=== PATIENT | male | born 1960 | race Caucasian/White ===

== ENCOUNTER 2018-07-05 09:37 | Emergency (ER) | payer OTHER ==
[~2018-07-05] VITALS: Ht 165.1 cm; Wt 88.0 kg
[~2018-07-05 09:37] MED LIST: CIPRO500 MG PO; FLAGYL375 MG PO; FLAGYL500MG PO; LIPITOR20 MG PO; [UNRECOGNIZED DRUG - OTHER] PO
== END 2018-07-05 16:28 | disposition home or self-care (01) ==
LOC: ER 09:37
DX: K57.32 Diverticulitis of large intestine without perforation or abscess without bleeding (principal); R10.32 Left lower quadrant pain

== ENCOUNTER 2019-03-22 18:51 | Emergency (ER) | payer OTHER ==
[~2019-03-22] VITALS: Ht 165.1 cm; Wt 88.9 kg
[2019-03-22] MEDS ORDERED: MUCINEX DM ER1 EAC1 PO (22:48)
[2019-03-22] MEDS ORDERED: ZITHROMAX500 MG PO (22:48)
== END 2019-03-22 22:53 | disposition home or self-care (01) ==
LOC: ER 18:51
DX: B34.9 Viral infection, unspecified (principal)

== ENCOUNTER 2019-07-10 07:01 | Emergency (ER) | payer OTHER ==
[~2019-07-10] VITALS: Ht 165.1 cm; Wt 88.5 kg
[~2019-07-10 07:01] MED LIST changes: +MUCINEX DM ER1 EAC1 PO; +ZITHROMAX500 MG PO
== END 2019-07-10 14:21 | disposition home or self-care (01) ==
LOC: ER 07:01
DX: K57.92 Diverticulitis of intestine, part unspecified, without perforation or abscess without bleeding (principal); R10.32 Left lower quadrant pain

== ENCOUNTER 2021-03-25 09:16 | Emergency (ER) | payer OTHER ==
[~2021-03-25] VITALS: Ht 165.1 cm; Wt 87.1 kg
== END 2021-03-25 15:35 | disposition home or self-care (01) ==
LOC: ER 09:16
DX: R10.30 Lower abdominal pain, unspecified (principal)

== ENCOUNTER → 2021-06-25 | Emergency (ER) | payer OTHER ==
[~2021-06-25] VITALS: Ht 165.1 cm; Wt 86.6 kg
== END | disposition home or self-care (01) ==
LOC: ER 13:09
DX: K57.32 Diverticulitis of large intestine without perforation or abscess without bleeding (principal)

== ENCOUNTER 2021-10-21 10:17 | Outpatient (CLI) | payer OTHER | END 2021-10-21 10:35 | disposition home or self-care (01) | LOC: SONOGRAMA 10:17 | PROVIDERS: ATTEND Internal Medicine Nephrology | DX: R80.9 Proteinuria, unspecified (principal) ==

== ENCOUNTER 2024-04-09 12:32 | Emergency (ER) | payer OTHER ==
[~2024-04-09] VITALS: Ht 165.1 cm; Wt 81.2 kg
[~2024-04-09 12:32] MED LIST changes: +DICLOFENAC SOD100 GM; +FAMOTIDINE20 MG; +HYOSCYAMINE0.125 M1 SL; +MAXIMUM D3325 MCG
[2024-04-09] MEDS ORDERED: ATORVASTATIN CA40 MG (12:36)
[2024-04-09] MEDS ORDERED: RINGERS SOLUTION,LACTATED 1,000 ML IV STA (14:22)
[2024-04-09] MEDS ORDERED: METRONIDAZOLE/SODIUM CHLORIDE 500 MG/100 ML PIGGYBACK IV STA (14:22)
[2024-04-09] MEDS ORDERED: CIPROFLOXACIN IN 5 % DEXTROSE 400 MG/200 ML PIGGYBAG IV STA (14:22)
[2024-04-09] MEDS ORDERED: MEPERIDINE HCL/PF 50 MG/ML VIAL IM STA (14:23)
[2024-04-09] MEDS ORDERED: CIPROFLOXACIN IN 5 % DEXTROSE 400 MG/200 ML PIGGYBAG IV ONE (15:15)
[2024-04-09] MEDS ORDERED: METRONIDAZOLE/SODIUM CHLORIDE 500 MG/100 ML PIGGYBACK IV ONE (15:16)
[2024-04-09 16:00] LABS: URINE APPEARANCE Clear; URINE BILIRRUBIN Negative (NEGATIVE); URINE BLOOD Negative; URINE COLOR Dark Yellow; URINE GLUCOSE Negative (NEGATIVE); URINE KETONE Trace (NEGATIVE); URINE LEUKOCYTE Negative; URINE NITRATE Negative; URINE PROTEIN 30 (NEGATIVE)
[2024-04-09 16:01] LABS: HEMOGLOBIN 13.8 g/dL (13-16.00); MEAN CELL VOLUME 84.1 fL (80.0-100.00); MEAN CORPUSCULAR HGB CONC 34.5 g/dl (32.0-36.0); PLATELET COUNT 239 K/uL (150-450); RED BLOOD COUNT 4.76 M/uL (4.00-6.00); RED CELL DISTRIBUTION WIDTH 14.4 % (11.5-14.5); URINE RBC 3.9 uL (0.0-20.8); URINE WBC 2.3 uL (0.0-23.2)
[2024-04-09 16:02] LABS: URINE CAST 0.61 uL (0.0-1.40); URINE EPITHELIAL CELLS 0.9 uL (0.0-38.8)
[2024-04-09 16:22] LABS: CALCIUM 9.8 mg/dL (8.5-10.1); CREATININE SERUM 0.99 mg/dL (0.70-1.30); GFR 75.87; POTASSIUM 3.72 mEq/L (3.5-5.1)
[2024-04-09] MEDS ORDERED: PEPCID AC20 MG PO (17:21)
[2024-04-09] MEDS ORDERED: METRONIDAZOLE500 MG PO (17:21)
[2024-04-09] MEDS ORDERED: CIPRO500 MG PO (17:21)
[2024-04-09] MEDS ORDERED: LEVSIN/SL0.125 MG SL (17:21)
[2024-04-09] MEDS ORDERED: KETOROLAC TROMETHAMINE 30 MG VIAL IV STA (20:05)
[2024-04-09] MEDS ORDERED: KETOROLAC TROMETHAMINE 30 MG VIAL ONE (20:08)
== END 2024-04-09 20:17 | disposition home or self-care (01) ==
LOC: ER 12:34
PROVIDERS: General Practice
DX: K57.32 Diverticulitis of large intestine without perforation or abscess without bleeding (principal); R10.9 Unspecified abdominal pain; J45.909 Unspecified asthma, uncomplicated; Z91.013 Allergy to seafood; Z88.8 Allergy status to other drugs, medicaments and biological substances; K80.20 Calculus of gallbladder without cholecystitis without obstruction
CPT/HCPCS: 36415; 74176; 96365; 99284; J1885

== ENCOUNTER 2025-03-11 09:29 | Emergency (ER) | payer OTHER ==
[~2025-03-11] VITALS: Ht 165.1 cm; Wt 83.9 kg
[~2025-03-11 09:29] MED LIST changes: +ATORVASTATIN CA40 MG; +LEVSIN/SL0.125 MG SL; +METRONIDAZOLE500 MG PO; +PEPCID AC20 MG PO
[2025-03-11 11:23] LABS: BASO % 0.5 % (0.1-1.2); EOS # 0.22 (0.04-0.54); EOS % 2.5 % (0.7-7.0); LYMPH # 1.38 (1.18-3.74); LYMPH % 15.8 % (19.3-53.1); MEAN PLATELET VOLUME 9.10 fl (9.4-12.4); MONO # 0.71 (0.24-0.82); MONO % 8.1 % (4.7-12.5); NEUT # 6.36 (1.56-6.13); NEUT % 72.8 % (34.0-71.1); RED CELL DISTRIBUTION WIDTH 12.9 % (11.6-14.4)
[2025-03-11 11:57] LABS: ALT/SGPT 36.0 U/L (12-78); AST/SGOT 22.0 U/L (15-37); BILIRUBIN TOTAL 0.59 mg/dL (0.3-1.2); BUN CREA RATIO 25.0 (7.0-25.0); CREATININE SERUM 0.99 mg/dL (0.70-1.30); GFR 75.63; GLOBULINA 4.0 G/DL (2.4-3.5); GLUCOSE FASTING 123.0 mg/dL (65-100); OSMOLALITY SERUM 291.0 MOSM/KG (275-295)
[2025-03-11] MEDS ORDERED: IBUPROFEN600 MG PO (17:08)
[2025-03-11] MEDS ORDERED: KETOROLAC TROMETHAMINE 60 MG VIAL IM ONE (17:19)
[2025-03-11] MEDS ORDERED: DEXAMETHASONE SODIUM PHOSPHATE 4 MG/ML VIAL ONE (17:19)
== END 2025-03-11 17:27 | disposition home or self-care (01) ==
LOC: ER 09:29
PROVIDERS: Preventive Medicine Public Health & General Preventive Medicine
DX: M65.262 Calcific tendinitis, left lower leg (principal); M25.562 Pain in left knee; Z91.013 Allergy to seafood; M06.8A Other specified rheumatoid arthritis, other specified site; J45.909 Unspecified asthma, uncomplicated; K57.32 Diverticulitis of large intestine without perforation or abscess without bleeding; L40.8 Other psoriasis

== ENCOUNTER 2025-07-10 10:29 | Emergency (ER) | payer OTHER ==
[~2025-07-10] VITALS: Ht 165.1 cm; Wt 83.0 kg
[~2025-07-10 10:29] MED LIST changes: +IBUPROFEN600 MG PO
[2025-07-10] MEDS ORDERED: IPRATROPIUM BROMIDE 0.5 MG/2.5 ML AMPUL.NEB IH STA (11:31)
[2025-07-10] MEDS ORDERED: METHYLPREDNISOLONE SOD SUCC 125 MG VIAL IM STA (11:31)
[2025-07-10] MEDS ORDERED: LEVALBUTEROL HCL 0.63 MG/3 ML SOLUTION IH SCH (11:45)
[2025-07-10] MEDS ORDERED: METHYLPREDNISOLONE SOD SUCC 40 MG VIAL ONE (13:20)
[2025-07-10] MEDS ORDERED: IPRATROPIUM BROMIDE 0.5 MG/2.5 ML AMPUL.NEB IH ONE (14:13)
[2025-07-10] MEDS ORDERED: LEVALBUTEROL HCL 0.63 MG/3 ML SOLUTION IH ONE (14:13)
[2025-07-10 14:15] LABS: BASO % 0.7 % (0.1-1.2); EOS # 0.34 (0.04-0.54); EOS % 4.6 % (0.7-7.0); LYMPH # 2.17 (1.18-3.74); LYMPH % 29.6 % (19.3-53.1); MEAN PLATELET VOLUME 8.90 fl (9.4-12.4); MONO # 0.89 (0.24-0.82); NEUT # 3.84 (1.56-6.13); NEUT % 52.3 % (34.0-71.1); RED CELL DISTRIBUTION WIDTH 12.9 % (11.6-14.4)
[2025-07-10 14:21] LABS: ERYTHROCYTE SEDIMENTATION RATE 12 mm/hr (0-20)
[2025-07-10 14:23] LABS: MONO % 12.1 % (4.7-12.5)
[2025-07-10 14:35] LABS: URINE APPEARANCE Clear; URINE BILIRRUBIN Negative (NEGATIVE); URINE BLOOD Negative; URINE COLOR Yellow; URINE GLUCOSE Negative (NEGATIVE); URINE KETONE Negative (NEGATIVE); URINE LEUKOCYTE Negative; URINE NITRATE Negative; URINE PROTEIN 30 (NEGATIVE); URINE UROBILINOGEN 1.0 E.U./dl
[2025-07-10 14:39] LABS: URINE RBC 3.6 uL (0.0-20.8)
[2025-07-10 14:46] LABS: URINE BACTERIA 3.5 uL (0.0-1933); URINE CAST 0.00 uL (0.0-1.40); URINE EPITHELIAL CELLS 1.0 uL (0.0-38.8); URINE WBC 1.2 uL (0.0-23.2)
[2025-07-10 14:52] LABS: COVID-19 AG NEGATIVE (NEGATIVE)
[2025-07-10 14:53] LABS: ALT/SGPT 39.0 U/L (12-78); AST/SGOT 25.0 U/L (15-37); BILIRUBIN TOTAL 0.55 mg/dL (0.3-1.2); BUN CREA RATIO 21.0 (7.0-25.0); CREATININE SERUM 0.89 mg/dL (0.70-1.30); GFR 85.52; GLOBULINA 3.6 G/DL (2.4-3.5); GLUCOSE FASTING 122.0 mg/dL (65-100); OSMOLALITY SERUM 285.0 MOSM/KG (275-295)
[2025-07-10 14:55] LABS: INR 1.02
[2025-07-10] MEDS ORDERED: SINGULAIR10 MG PO (17:22)
[2025-07-10] MEDS ORDERED: BUDESONIDE0.5 MG/2 M IH (17:22)
[2025-07-10] MEDS ORDERED: MEDROLPACK PO (17:22)
[2025-07-10] MEDS ORDERED: ALBUTEROL2.5 MG/3 M IH (17:22)
== END 2025-07-10 19:08 | disposition home or self-care (01) ==
LOC: ER 10:30
PROVIDERS: Physician Assistant Medical
DX: J45.31 Mild persistent asthma with (acute) exacerbation (principal); Z20.822 Contact with and (suspected) exposure to COVID-19; Z88.8 Allergy status to other drugs, medicaments and biological substances; Z91.013 Allergy to seafood